=== PATIENT | female | born 1955 | race Caucasian/White ===

== ENCOUNTER 2018-04-12 11:39 | Inpatient (IN) | payer MEDICARE, BC, OTHER ==
[~2018-04-12 11:39] MED LIST: LACTATED RINGER'S 1,000 ML (ENTER RATE) IV*
[2018-04-12] MEDS ORDERED: ACETAMINOPHEN 325 MG TAB PO (14:00)
[2018-04-12] MEDS ORDERED: ONDANSETRON 4 MG INJ IV ×2 (14:00→19:30)
[2018-04-12] MEDS ORDERED: DIPHENHYDRAMINE 50 MG INJ IV (14:00)
[2018-04-12] MEDS ORDERED: CEPASTAT LOZENGE MT (14:00)
[2018-04-12] MEDS ORDERED: NALOXONE (0.4 MG/ML) INJ IV (14:00)
[2018-04-12] MEDS ORDERED: HEPARIN 1000 UNITS/ML 10 ML INJ (14:03)
[2018-04-12] MEDS ORDERED: MIDAZOLAM 1 MG/ML 2 ML INJ (14:22)
[2018-04-12] MEDS ORDERED: FAMOTIDINE 20 MG INJ (15:00)
[2018-04-12] MEDS: CEFAZOLIN 2 GM/50 ML (PMX) 50 ML IVPB (15:00)
[2018-04-12] MEDS ORDERED: DEXAMETHASONE 4 MG/ML 1 ML INJ (15:00)
[2018-04-12] MEDS ORDERED: ONDANSETRON 4 MG INJ (15:00)
[2018-04-12] MEDS ORDERED: CEFAZOLIN 1 GM INJ (15:00)
[2018-04-12] MEDS ORDERED: PROPOFOL 40 ML (15:00)
[2018-04-12] MEDS ORDERED: SUCCINYLCHOLINE CHLORIDE 100 MG/5 ML SYG IV (15:00)
[2018-04-12] MEDS ORDERED: LIDOCAINE 2% (SDV) 5 ML INJ (15:00)
[2018-04-12] MEDS: CEFAZOLIN 1 GM/50 ML (PMX) 50 ML IVPB ×2 (15:00→22:24)
[2018-04-12] MEDS: BUPIVACAINE 0.25%/EPI (SDV) 30 ML INJ (15:35)
[2018-04-12] MEDS: THROMBIN 5000 UNIT VIAL ×2 (15:36→18:12)
[2018-04-12] MEDS ORDERED: PROPOFOL 100 ML (16:17)
[2018-04-12] MEDS: SURGIFOAM POWDER 1 GM KIT ×2 (17:11→18:11)
[2018-04-12] MEDS ORDERED: HYDROmorphONE 2 MG/ML SYG (18:42)
[2018-04-12] MEDS ORDERED: EPHEDrine SULFATE 50 MG/5 ML SYG IV (19:30)
[2018-04-12] MEDS ORDERED: PROCHLORPERAZINE 10 MG INJ IV (19:30)
[2018-04-12] MEDS ORDERED: MEPERIDINE 25 MG INJ IV (19:30)
[2018-04-12] MEDS ORDERED: HYDROmorphONE 1 MG/5 ML IV SYRINGE IV ×3 (19:30)
[2018-04-12] MEDS ORDERED: FENTAnyl 50 MCG/ML VIAL IV ×2 (19:30)
[2018-04-12] MEDS: HYDROmorphONE 0.2 MG/ML PCA IV (19:44)
[2018-04-12] MEDS: DIPHENHYDRAMINE 50 MG INJ IV (20:31)
[2018-04-12] MEDS: FENTAnyl 50 MCG/ML VIAL IV ×2 (20:32→20:40)
[2018-04-12] MEDS: hydrALAzine 20 MG INJ IV (20:33)
[2018-04-12] MEDS: LABETALOL HCL 20MG INJ IV (20:45)
[2018-04-12] MEDS ORDERED: LABETALOL HCL 20MG INJ (20:54)
[2018-04-12] MEDS: D5W-0.45 NACL + KCL 20 MEQ 1,000 ML IV ×2 (22:06→23:35)
[2018-04-12] MEDS: CYCLOBENZAPRINE 10 MG TAB PO (22:24)
[2018-04-12] MEDS: DOCUSATE SODIUM 100 MG CAP PO (22:24)
[2018-04-12] MEDS: HYDROmorphONE 0.5 MG/0.5 ML SYG IV (22:52)
[2018-04-13] MEDS: HYDROmorphONE 0.2 MG/ML PCA IV ×4 (01:44→23:53)
[2018-04-13 05:09] LABS: ADD MAN DIFF? NO
[2018-04-13 05:18] LABS: BASOPHILS % 0.2 % (0.0-2.0); HEMOGLOBIN 11.6 g/dl (12.0-16.0); LYMPHOCYTES # 0.9 10^3/ul (0.8-2.9); LYMPHOCYTES % 9.2 % (15.0-51.0); MEAN CORPUSCULAR HEMOGLOBIN 30.7 pg (29.0-33.0); MEAN CORPUSCULAR HGB CONC 33.1 g/dl (32.0-37.0); MEAN CORPUSCULAR VOLUME 92.6 fl (82.0-101.0); MONOCYTE # 0.6 10^3/ul (0.3-0.9); MONOCYTES % 6.4 % (0.0-11.0); NEUTROPHIL # 8.1 10^3/ul (1.6-7.5); NEUTROPHILS % 83.9 % (39.0-77.0); PLATELET COUNT 278 10^3/UL (140-415); RED BLOOD COUNT 3.78 10^6/ul (4.20-5.40); RED CELL DISTRIBUTION WIDTH 12.1 % (11.5-14.5)
[2018-04-13 05:18] LABS: WHITE BLOOD COUNT 9.7 10^3/ul (4.8-10.8)
[2018-04-13 05:30] LABS: ANION GAP 8 (5-13); BLOOD UREA NITROGEN 8 mg/dl (7-20); CALCIUM 8.7 mg/dl (8.4-10.2); CARBON DIOXIDE 28 mmol/L (21-31); CHLORIDE 104 mmol/L (97-110); CREATININE 0.55 mg/dl (0.44-1.00); Estimated GFR > 60 mL/min (>60); GLUCOSE 131 mg/dl (70-220); POTASSIUM 4.9 mmol/L (3.5-5.1); SODIUM 140 mmol/L (135-144)
[2018-04-13] MEDS: CEFAZOLIN 1 GM/50 ML (PMX) 50 ML IVPB ×2 (06:18→14:57)
[2018-04-13] MEDS: PANTOPRAZOLE 40 MG INJ IV (06:18)
[2018-04-13] MEDS: DOCUSATE SODIUM 100 MG CAP PO ×2 (08:52→21:00)
[2018-04-13] MEDS: D5W-0.45 NACL + KCL 20 MEQ 1,000 ML IV ×2 (10:03→19:35)
[2018-04-13] MEDS: CYCLOBENZAPRINE 10 MG TAB PO (20:03)
[2018-04-14 05:29] LABS: ADD MAN DIFF? NO
[2018-04-14] MEDS: D5W-0.45 NACL + KCL 20 MEQ 1,000 ML IV ×2 (05:35→15:35)
[2018-04-14 05:41] LABS: BASOPHIL # 0.1 10^3/ul (0.0-0.1); BASOPHILS % 0.8 % (0.0-2.0); EOSINOPHILS # 0.2 10^3/ul (0.0-0.5); EOSINOPHILS % 2.3 % (0.0-7.0); HEMATOCRIT 35.1 % (37.0-47.0); HEMOGLOBIN 11.4 g/dl (12.0-16.0); LYMPHOCYTES # 2.3 10^3/ul (0.8-2.9); LYMPHOCYTES % 30.8 % (15.0-51.0); MEAN CORPUSCULAR HEMOGLOBIN 30.6 pg (29.0-33.0); MEAN CORPUSCULAR HGB CONC 32.5 g/dl (32.0-37.0); MEAN CORPUSCULAR VOLUME 94.4 fl (82.0-101.0); MEAN PLATELET VOLUME 9.9 fl (7.4-10.4); MONOCYTE # 0.6 10^3/ul (0.3-0.9); MONOCYTES % 8.2 % (0.0-11.0); NEUTROPHIL # 4.2 10^3/ul (1.6-7.5); NEUTROPHILS % 57.5 % (39.0-77.0); PLATELET COUNT 259 10^3/UL (140-415); RED BLOOD COUNT 3.72 10^6/ul (4.20-5.40); RED CELL DISTRIBUTION WIDTH 12.2 % (11.5-14.5)
[2018-04-14 05:41] LABS: WHITE BLOOD COUNT 7.3 10^3/ul (4.8-10.8)
[2018-04-14 05:59] LABS: ANION GAP 7 (5-13); BLOOD UREA NITROGEN 7 mg/dl (7-20); CALCIUM 8.4 mg/dl (8.4-10.2); CARBON DIOXIDE 29 mmol/L (21-31); CHLORIDE 105 mmol/L (97-110); CREATININE 0.52 mg/dl (0.44-1.00); Estimated GFR > 60 mL/min (>60); GLUCOSE 99 mg/dl (70-220); MAGNESIUM 2.1 mg/dl (1.7-2.5); POTASSIUM 3.9 mmol/L (3.5-5.1); SODIUM 141 mmol/L (135-144)
[2018-04-14] MEDS: PANTOPRAZOLE 40 MG INJ IV (06:22)
[2018-04-14] MEDS: HYDROCODONE/APAP (10/325) TAB PO ×4 (09:00→21:25)
[2018-04-14] MEDS: DOCUSATE SODIUM 100 MG CAP PO ×2 (09:22→21:07)
[2018-04-14] MEDS: AL HYDROX/MG HYDROX/SIMETH 30 ML CUP PO (09:23)
[2018-04-14] MEDS: BISACODYL 10 MG SUPP PR (10:21)
[2018-04-14] MEDS: NA PHOSPHATE/BIPHOS 133 ML ENEMA PR (20:37)
[2018-04-14] MEDS: CYCLOBENZAPRINE 10 MG TAB PO (22:43)
[2018-04-15] MEDS: HYDROCODONE/APAP (10/325) TAB PO ×3 (01:25→09:25)
[2018-04-15] MEDS: AL HYDROX/MG HYDROX/SIMETH 30 ML CUP PO (01:28)
[2018-04-15] MEDS: D5W-0.45 NACL + KCL 20 MEQ 1,000 ML IV (01:35)
[2018-04-15 05:05] LABS: ADD MAN DIFF? NO
[2018-04-15] MEDS: PANTOPRAZOLE 40 MG INJ IV (05:05)
[2018-04-15 05:06] LABS: BASOPHIL # 0.1 10^3/ul (0.0-0.1); BASOPHILS % 0.6 % (0.0-2.0); EOSINOPHILS # 0.3 10^3/ul (0.0-0.5); EOSINOPHILS % 3.7 % (0.0-7.0); LYMPHOCYTES # 1.9 10^3/ul (0.8-2.9); LYMPHOCYTES % 22.9 % (15.0-51.0); MEAN CORPUSCULAR HEMOGLOBIN 30.5 pg (29.0-33.0); MEAN CORPUSCULAR HGB CONC 32.4 g/dl (32.0-37.0); MEAN CORPUSCULAR VOLUME 93.9 fl (82.0-101.0); MEAN PLATELET VOLUME 9.8 fl (7.4-10.4); MONOCYTE # 0.6 10^3/ul (0.3-0.9); NEUTROPHIL # 5.4 10^3/ul (1.6-7.5); NEUTROPHILS % 65.4 % (39.0-77.0); PLATELET COUNT 296 10^3/UL (140-415); RED BLOOD COUNT 3.94 10^6/ul (4.20-5.40); RED CELL DISTRIBUTION WIDTH 12.1 % (11.5-14.5)
[2018-04-15 05:06] LABS: WHITE BLOOD COUNT 8.3 10^3/ul (4.8-10.8)
[2018-04-15] MEDS: NA PHOSPHATE/BIPHOS 133 ML ENEMA PR (05:35)
[2018-04-15 06:26] LABS: ANION GAP 9 (5-13); BLOOD UREA NITROGEN 8 mg/dl (7-20); CALCIUM 8.9 mg/dl (8.4-10.2); CARBON DIOXIDE 32 mmol/L (21-31); CHLORIDE 101 mmol/L (97-110); Estimated GFR > 60 mL/min (>60); GLUCOSE 92 mg/dl (70-220); MAGNESIUM 2.3 mg/dl (1.7-2.5); POTASSIUM 4.3 mmol/L (3.5-5.1); SODIUM 142 mmol/L (135-144)
[2018-04-15] MEDS: DOCUSATE SODIUM 100 MG CAP PO (09:24)
== END 2018-04-15 12:31 | disposition home or self-care (01) | DRG 455 ==
LOC: REC 11:39 → MS1 21:50
PROC: 0SG10A0 Fusion of 2 or more Lumbar Vertebral Joints with Interbody Fusion Device, Anterior Approach, Anterior Column, Open Approach (ICD-10-PCS; principal; 2018-04-12 13:30)
PROC: 0SG10K1 Fusion of 2 or more Lumbar Vertebral Joints with Nonautologous Tissue Substitute, Posterior Approach, Posterior Column, Open Approach (ICD-10-PCS; 2018-04-12 13:30)
DX: M51.16 Intervertebral disc disorders with radiculopathy, lumbar region (principal); M48.061 Spinal stenosis, lumbar region without neurogenic claudication
CPT/HCPCS: 72114; 80048; 83735; 85025; 86850; 86900; 86901; 86920; 88304; 97116; 97161; 97530